=== PATIENT | female | born 1995 | race Caucasian/White ===

== ENCOUNTER 2017-08-15 23:06 | Emergency (ER) | payer OTHER ==
[~2017-08-15] VITALS: Ht 157.5 cm; Wt 61.2 kg
[2017-08-15 23:10] VITALS: TEMP 36.7; Ht 157.5 cm; Wt 61.2 kg
[2017-08-15] MEDS ORDERED: LORAZEPAM 0.5 MG TAB SL STA (23:31)
[2017-08-15] MEDS ORDERED: CEPH500C2 PO (23:39)
--- NOTE | 2017-08-15 23:42 | EMERGENCY ROOM VISIT NOTE ---
History First contact with patient: 23:14 Chief Complaint: WOUND INFECTION Stated Complaint: BELLY BUTTON PIERCING, INFECTION Nursing Triage Summary: Pt c/o feelings of tetanus. States they saw a little pus come around her belly button ring today. No skin issues noted History of Present Illness The patient is a 22 year old female who presents to the Emergency Room with her boyfriend with complaints that she thinks she has tetanus. She states that she saw some pus coming out around her bellybutton piercing. She states that her boyfriend was seen yesterday for tetanus and think she has it also. She states she has a history of anxiety. She states she has had the current bellybutton ring in for 1 year. She states it gets infected intermittently. She was cleaning it yesterday and thought she saw a small amount of pus on the cotton. After her boyfriend was seen in here yesterday she was thinking she may have tetanus also. She states that her fingers went numb and she was getting very anxious and her legs felt "weird". The patient denies any fever, chest pain or shortness of breath. Review of Systems 10 system review was performed and was negative unless stated otherwise history of present illness. Past Medical/Surgical History Anxiety Social History Smoking Status: Never Smoker Marital Status: single Housing Status: lives with significant other Physical Exam Vital Signs Date Time Temp Pulse Resp B/P (MAP) Pulse Ox O2 Delivery O2 Flow Rate FiO2 08/15/17 23:10 36.7 120 18 141/75 99 Room Air Physical Exam GENERAL: 22-year-old female appears tearful in no acute physical distress. MENTAL Status: Patient is alert and oriented 3. The patient is very anxious. She is crying stating she thinks she has tetanus. EYES: PERRLA. EOMs intact. LUNGS: Clear auscultation without wheezes rales or rhonchi. CARDIAC: Regular rate and rhythm without murmur. Pulses is full and equal throughout. ABDOMEN: Positive bowel sounds all 4 quadrants. Soft, nontender to palpation without organomegaly or masses. There is a bellybutton ring in place without any erythema or purulent drainage. NEURO: Grossly intact Medical Decision & Procedures ED Course The patient was evaluated. The patient's boyfriend was in the room and kept on insisting that he was treated for tetanus yesterday but yet he appears well. He then later stated that he had to fight with the provider yesterday in order to get a tetanus booster for a piece of glass that was in his hand. The patient now feels that she has tetanus. She worries and is a hypochondriac per the boyfriend. The patient states that she did not have all her childhood immunizations. She called her parents and she did have her immunizations but did not have any as an older child. The patient was given Ativan 5 mg p.o. She was also given Adacel. She was given Keflex 500 mg p.o. while in the ER. The patient was reevaluated was feeling better. The patient was discharged home in stable condition. Medical Decision The patient has severe anxiety and therefore even though I did not feel that a tetanus booster was indicated in this time at this time one was given as well as she will be placed on antibiotics prophylactically. [facility] Drug Monitoring Program Search Results: patient reviewed within database Medication Reconcilliation Current Medication List: was personally reviewed by me Blood Pressure Screening Patient's blood pressure: Normal blood pressure Impression Primary Impression: Anxiety Departure Information Dispostion Home / Self-Care Condition GOOD Prescriptions Cephalexin Monohydrate (KEFLEX) 500 Mg Cap 500 MG PO TID, #15 CAP Prov: Tabatha Pratt PA-C 08/15/17 Referrals No Doctor, Assigned (PCP) Forms HOME CARE DOCUMENTATION FORM, IMPORTANT VISIT INFORMATION, WORK / SCHOOL INSTRUCTIONS Patient Instructions Anxiety Disorder, My [facility] Additional Instructions Take Keflex as prescribed to prevent infection of the skin at your piercing. Make sure you cleansed here piercing routinely to prevent recurrent infection. Recommend follow-up with your family physician for further evaluation of your anxiety and possible treatment.
[2017-08-15] MEDS ORDERED: CEPHALEXIN MONOHYDRATE 250 MG CAP PO ONE (23:45)
[2017-08-15] MEDS ORDERED: DIPHTHERIA/TETANUS/PERTUSSIS 0.5 ML SYR/VIAL IM. ONE (23:45)
[2017-08-15 23:53] VITALS: BP 132/81; PULSE 99; O2SAT 99
--- NOTE | 2017-08-26 12:56 | EDITING REQUIRED CODING QUERY ---
CODING QUERY To promote full compliance with coding requirements relating to patient care, provider participation is requested in all cases of shift manager uncertainty. Please assist us with the question(s) below: Coding Question(s):Patient was prescribed Keflex. Please document if the patient had any kind of infection warranting the prescription. Physician's Response(s): Erythema, edema Thank you Jaqueline Jaquez Principal Diagnosis: "_that condition established after study, to be chiefly responsible for occasioning the admission of the patient to the hospital for care." Co-Existing Principal Diagnosis: "_when two or more diagnoses equally meet the criteria for principal diagnosis as determined by the circumstances of admission, diagnostic work up, and/or therapy provided, and the Alphabetic Index, Tabular List, or another coding guideline does not provide sequencing direction, any one of the diagnoses may be sequenced first." "When the physician has documented what appears to be a current diagnosis in the body of the record, but has not included the diagnosis in the final diagnostic statement, the physician should be asked whether the diagnosis should be added." (Source [facility]oding [facility] 2 QTR90. p3-4)
== END 2017-08-15 23:54 | disposition home or self-care (01) ==
LOC: C.EDB 23:08 → C.EDA 23:54
DX: F41.9 Anxiety disorder, unspecified (principal); L53.9 Erythematous condition, unspecified; R60.9 Edema, unspecified; Z23 Encounter for immunization